=== PATIENT | female | born 1980 | race Caucasian/White ===

== ENCOUNTER 2023-10-16 12:15 | Emergency (ER) | payer BC ==
[2023-10-16] MEDS ORDERED: Dexamethasone 10 MG/ML VIAL ONE (12:57)
[2023-10-16] MEDS ORDERED: diphenhydrAMINE 25 MG CAP ONE (12:57)
== END 2023-10-16 13:18 | disposition home or self-care (01) ==
LOC: MADERS 12:15
DX: L23.7 Allergic contact dermatitis due to plants, except food (principal); L29.9 Pruritus, unspecified
CPT/HCPCS: 96372; 99282; J1100